=== PATIENT | female | born 1990 | race Caucasian/White ===

== ENCOUNTER 2022-05-15 09:43 | Outpatient (CLI) | payer BC, SELFPAY ==
[2022-05-15 18:11] LABS: Cholesterol* 198 mg/dL (90-199)
[2022-05-15 18:12] LABS: Glucose* 89 mg/dL (60-115); HDL Cholesterol* 65 mg/dL (>=50); LDL Cholesterol Calculated 116 mg/dL (<100); Triglycerides* 85 mg/dL (40-149)
== END 2022-05-15 09:44 | disposition home or self-care (01) ==
PROVIDERS: Visit Provider Obstetrics & Gynecology
DX: Z01.419 Encounter for gynecological examination (general) (routine) without abnormal findings (principal); Z13.29 Encounter for screening for other suspected endocrine disorder; Z13.1 Encounter for screening for diabetes mellitus; Z13.6 Encounter for screening for cardiovascular disorders
CPT/HCPCS: 80061; 82947; 84443

== ENCOUNTER 2023-10-11 19:33 | Emergency (ER) | payer OTHER, SELFPAY ==
[2023-10-11 19:46] VITALS: BP 139/88; PULSE 102; RESP 18; TEMP 36.3; O2SAT 100; BMI 25.1
--- NOTE | 2023-10-11 19:51 | ED_ITS ---
HPI - General Adult General Date Seen: 10/11/23 Chief complaint: Shortness of Breath/Dyspnea Stated complaint: shortness of breath, chest pain, covid + Time Seen by Provider: 10/11/23 19:51 History of Present Illness HPI narrative: 32-year-old female presents to the ER today for shortness of breath and chest pain. She was positive for COVID 9 days ago. Symptoms had been improving and she has been increasing her activity. Today she was at the park with a daughter and started feeling tightness in her chest along with shortness of breath. Apparently has AFib confirmed once 19 years old. She does have a family history of AFib in her father as well as in her grandmother but does not have any known genetic channelopathy or other heart condition. No family history of sudden cardiac . She has had symptoms of upper respiratory infection including stuffy nose, cough, and other symptoms dating back to about the 2nd week of September. She had been sick for about a week or 10 days when she tested for coronavirus on October 02 and was positive. That was 10 days ago. She had had lingering symptoms of cough, nasal congestion, fatigue ongoing since then but has been getting better and better this week. No ongoing fevers. Minimal ongoing cough. She was back to doing her running and cardio exercise for a few days this week. She felt like she was getting better. Today she took her daughter to the park and while they were playing at the park she began to feel a little bit of discomfort and tightness and squeezing in her chest at about 1 or 2:00 a.m. this afternoon. She was little bit short of breath. She decided to take her daughter to the library. There the chest tightness seemed to get better but she still felt a little bit lightheaded and dizzy. She has had to go home and rest and symptoms have persisted through the evening. She is not having any palpitations. No nausea. No back pain. No high fever. No cough. No abdominal pain. No swelling in her legs. No recent travel. She does not have any history of DVT or PE. Related Data Home Medications Medication Instructions Recorded Confirmed Saccharomyces boulardii 250 mg 5,000 mmu cells PO QDAY 05/15/22 07/17/23 capsule (Daily Probiotic (S. boulardii)) cetirizine 10 mg tablet (Zyrtec) 10 mg PO QDAY PRN 05/15/22 07/17/23 Previous Rx's Medication Instructions Recorded norgestimate 0.25 mg-ethinyl 1 tab PO QDAY #84 tabs 07/17/23 estradiol 35 mcg tablet (Sprintec (28)) Allergies Allergy/AdvReac Type Severity Reaction Status Date / Time amoxicillin AdvReac Intermediate Rash/hives Verified 07/17/23 09:22 Clavulanate Allergy Mild Rash on Uncoded 07/17/23 09:22 chest PFSH PFSH Medical History Gestational hypertension (~05/2018) ?O13.9 - Gestational [-induced] hypertension without significant proteinuria, unspecified trimester (ICD-10) Delivery normal (06/11/18) ?O80 - Encounter for full-term uncomplicated delivery (ICD-10) Surgical History History of third molar tooth extraction ?K08.409 - Partial loss of teeth, unspecified cause, unspecified class (ICD- 10) Family History Father High cholesterol High blood pressure Atrial fibrillation Mother High cholesterol High blood pressure Thyroid disease Family/Other Stroke Lung cancer Social History Narrative: - [place] What is your current living situation?: I presently have a place to live Problems where you live: declined to answer In the past 12 months, utilities in danger of being shut off: no In past 12 months, lack of transportation kept you from medical appts, meetings, work, or getting things needed for daily living: no In the past 12 mos, have been you worried that your food would run out before you had money to buy more?: never true In the past 12 mos, the food you bought just didn't last and you didn't have money to buy more?: never true Highest level of school completed/degree received: Bachelor's degree Physical activity type: walking and running How many days of moderate to strenuous exercise, like a brisk walk, did you do in the last 7 days: 4 Smoking Status: Never smoker How often do you have a drink containing alcohol: monthly or less AUDIT-C Alcohol total score: 1 Non-prescribed substance use: denies use How often does anyone, including family, friends and others, physically hurt you : never How often does anyone, including family, friends and others, insult or talk down to you: never How often does anyone, including family, friends and others, threaten you with harm: never How often does anyone, including family, friends and others, scream or curse at you: never Little interest or pleasure in doing things: not at all Feeling down, depressed, or hopeless: not at all Do you think of yourself as: straight/heterosexual Gender Identity: female Are you currently sexually active: Yes Are you using contraception or practicing any form of control: Yes Exam Narrative: Exam Narrative: Constitutional: Appears well-developed and well-nourished. Alert. Conversant. Non toxic. HENT: Head: Atraumatic. Nose: Nose normal. Mouth/Throat: Oral mucosa is clear and moist. no trismus. Pharynx normal. Tonsils symmetric. No tonsillar enlargement, erythema, or exudate. Eyes: Conjunctivae normal. EOM normal. Pupils equal, round, and reactive to light. No scleral icterus. Neck: Normal range of motion. Neck supple. No tracheal deviation present. No JVD Cardiovascular: Normal rate, regular rhythm. No gallop. No friction rub. No murmur heard. Symmetric radial and PT artery pulses Pulmonary/Chest: Effort normal. No stridor. No respiratory distress. No wheezes. No rales. No rhonchi . No tenderness. Abdominal: Soft. Bowel sounds normal. No distension. No mass. No tenderness. No rebound. No guarding. No CVA tenderness. Musculoskeletal: RUE: Normal range of motion. No tenderness. No deformity LUE: Normal range of motion. No tenderness. No deformity RLE: Normal range of motion. No edema. No tenderness. No deformity LLE: Normal range of motion. No edema. No tenderness. No deformity Neurological: Alert and oriented to person, place, and time. Normal strength. CN II-VII intact. No sensory deficit. GCS eye subscore is 4. GCS verbal subscore is 5. GCS motor subscore is 6. Normal coordination Skin: Skin is warm and dry. No rash noted. No pallor. Normal capillary refill. Psychiatric: Normal mood. Normal affect. Very polite. Const: Vital Signs, click to edit/add: Vital Signs - 24 hr 10/11/23 19:46 Temperature 97.3 F L Pulse Rate [Pulse Oximeter] 102 H Respiratory Rate 18 Blood Pressure [Ri ght Upper Arm] 139/88 Pulse Oximetry 100 Oxygen Delivery Me thod Room Air Course Vital Signs Vital signs: Initial Vital Signs Temperature 97.3 F L 10/11/23 19:46 Temperature Source Temporal Artery Scan 10/11/23 19:46 Pulse Rate 102 H 10/11/23 19:46 Respiratory Rate 18 10/11/23 19:46 Blood Pressure 139/88 10/11/23 19:46 Blood Pressure Mean 105 10/11/23 19:46 Blood Pressure Position Supine 10/11/23 19:46 Pulse Oximetry 100 10/11/23 19:46 Oxygen Delivery Method Room Air 10/11/23 19:46 Vital Signs Temperature 97.3 F L 10/11/23 19:46 Pulse Rate 102 H 10/11/23 19:46 Respiratory Rate 18 10/11/23 19:46 Blood Pressure 139/88 10/11/23 19:46 Pulse Oximetry 100 10/11/23 19:46 Oxygen Delivery Method Room Air 10/11/23 19:46 Temperature 97.3 F L 10/11/23 19:46 Pulse Rate 102 H 10/11/23 19:46 Respiratory Rate 18 10/11/23 19:46 Blood Pressure 139/88 10/11/23 19:46 Pulse Oximetry 100 10/11/23 19:46 Oxygen Delivery Method Room Air 10/11/23 19:46 Medications Administered Medications: Discontinued Medications Generic Name Dose Route Start Last Admin Trade Name Freq PRN Reason Stop Dose Admin Aspirin 162 mg 10/11/23 19:54 10/11/23 20:22 Aspirin 81 Mg Tab.Chew PO 10/11/23 19:55 162 mg ONCE ONE Administration Medical Decision Making MDM Narrative Medical decision making narrative: This patient presents to the ER today for evaluation of chest discomfort and tightness that began about 1:00 p.m. this afternoon, 7 hours prior to arrival, while she was at the park with her daughter.. Differential was broad. No evidence of palpitations, syncope or other cardiac dysrhythmia. She has a history of AFib but is in sinus rhythm on her EKG here today. We considered possible ACS, however workup with EKG and troponin is negative. HEART score is low risk. Given time since onset of symptoms, I do not think the patient needs to be admitted for further sets of enzymes. EKG shows no evidence for pericarditis. Consider possible myocarditis given recent COVID. Chest x-ray shows no evidence for myocarditis related failure or CHF. No fever. White count normal. Troponin negative, white count normal. No evidence for CHF on chest x-ray. Chest x-ray shows no evidence for pneumonia, pneumothorax, pulmonary edema, pleural effusion, rib fracture, cardiomegaly. Mediastinum is normal on the x-ray. The patient has no ripping or tearing pain through to the back and has symmetric pulses on exam, no other acute neuro findings so I doubt aortic dissection. Risk of radiation and contrast exposure would outweigh the benefit of CT angiogram. We considered PE for this patient. No evidence for DVT on exam. Overall low risk. D-dimer screening is negative. Risk of radiation from CT PA would outweigh the benefit at this point. No wheezing or bronchospasm to suggest COPD/asthma. No signs of chest wall cellulitis, shingles, injury. With reasonable clinical confidence, I think the patient is safe for outpatient follow up. Discussed return precautions. Questions answered. Patient voices comfort with the plan. Lab Data Labs: Lab Results 10/11/23 Range/Units 20:15 WBC 7.95 (4.50-11.00) K/uL RBC 4.32 (4.00-5.20) m/uL Hgb 13.1 (12.0-16.0) gm/dL Hct 38.9 (33.0-51.0) % MCV 90 (80-100) fL MCH 30 (26-34) pg MCHC 34 (32-36) gm/dL RDW Coeff of Rajat 11.9 (11.5-15.5) % Plt Count 357 (140-440) K/uL Neut % (Auto) 60.1 (42.0-72.0) % Lymph % (Auto) 28.8 (20-44) % [place]ona % (Auto) 6.9 (0.0-11.0) % Eos % (Auto) 3.9 (0.0-7.0) % Baso % (Auto) 0.3 (0.0-3.0) % Neut # (Auto) 4.78 (1.7-7.0) K/uL Lymph # (Auto) 2.29 (0.90-2.90) K/uL [place] # (Auto) 0.50 (0.00-0.90) K/UL Eos # (Auto) 0.31 (0.00-0.50) K/uL Baso # (Auto) 0.02 (0.00-0.30) K/uL Abs Immat Gran (auto) 0.00 (0.00-0.30) K/uL Imm/Tot Granulo (auto) 0.0 % D-Dimer Quant (PE/DVT) 0.29 (0.00-0.50) ug/ml Sodium 139 (135-149) mmol/L Potassium 3.9 (3.6-5.1) mmol/L Chloride 104 (96-114) mmol/L Carbon Dioxide 26 (20-32) mmol/L Anion Gap 9 (7-15) mEq/L BUN 14 (5-24) mg/dL Creatinine 0.7 (0.5-1.5) mg/dL Estimated Creat Clear 125.92 Estimated GFR 119 ml/min Glucose 111 (60-115) mg/dL Calcium 9.3 (8.4-10.6) mg/dL Troponin I < 0.01 L (0.01-0.04) ng/mL Imaging Data Chest x-ray: Attestation: I have reviewed the pertinent imaging results. Radiologist's impression: IMPRESSION: No evidence of an acute pulmonary process. ECG Data Attestation: I personally reviewed and interpreted this ECG as follows: Interpretation: Normal sinus rhythm rate 90. [place] 134. No delta waves. No WPW. QRS axis normal axis. No pathologic Q-waves. Insignificant cues in leads 2 and [address] segment/T wave: No ST segment elevation or depression. QTc: 442. Discharge Plan Discharge Clinical Impression: Chest discomfort Patient Disposition: Home, Self-Care Condition: Stable Instructions: Chest Pain (DC) Additional Instructions: As we discussed, please return to the ER right away if you have worsening chest pain, worsening shortness of breath, high fever, or any concerns. If your pain is not completely improved within 48 hours, please recheck with your doctor. You may need an echocardiogram for further evaluation, if symptoms persist. Prescriptions: No Action cetirizine [Zyrtec] 10 mg tablet 10 mg PO QDAY PRN Saccharomyces boulardii [Daily Probiotic (S. boulardii)] 250 mg capsule 5,000 mmu cells PO QDAY norgestimate-ethinyl estradiol [Sprintec (28)] 0.25-35 mg-mcg tablet 1 tab PO QDAY Qty: 84 3RF Follow Up/Referrals: Provider,Not a Local [Primary Care Provider] - Stand Alone Forms: [facility] Info Instructions
--- NOTE | 2023-10-11 19:55 | CRLHL7_ITS ---
For Patients: As a result of the Cures Act, medical imaging exams and procedure reports are released immediately into your electronic medical record. You may view this report before your referring provider. If you have questions, please contact your health care provider. INDICATION: Chest pain, cough, COVID positive TECHNIQUE: Chest 2 view. Permanently recorded images are archived. COMPARISON: None. FINDINGS: Cardiovascular and mediastinum: Heart size and vasculature are normal in caliber and appearance. Lungs and pleural spaces: The lungs are clear. No pleural effusion or pneumothorax. Bones and soft tissues: Unremarkable for age. IMPRESSION: No evidence of an acute pulmonary process. Dictated by Fran Raymundo MD @ 10/11/2023 8:28:15 PM (Electronically Signed)
[2023-10-11] MEDS: ASPIRIN 81 MG TAB.CHEW 162 MG PO (20:22)
[2023-10-11 20:23] LABS: Basophils Absolute Auto 0.02 K/uL (0.00-0.30); Basophils Percent Auto 0.3 % (0.0-3.0); Eosinophils Absolute Auto 0.31 K/uL (0.00-0.50); Eosinophils Percent Auto 3.9 % (0.0-7.0); Hematocrit 38.9 % (33.0-51.0); Hemoglobin* 13.1 gm/dL (12.0-16.0); Lymphocytes Absolute Auto 2.29 K/uL (0.90-2.90); Lymphocytes Percent Auto 28.8 % (20-44); Mean Corpuscular HGB Conc 34 gm/dL (32-36); Mean Corpuscular Hemoglobin 30 pg (26-34); Mean Corpuscular Volume 90 fL (80-100); Monocytes Percent Auto 6.9 % (0.0-11.0); Neutrophils Absolute Auto 4.78 K/uL (1.7-7.0); Neutrophils Percent Auto 60.1 % (42.0-72.0); Platelet Count* 357 K/uL (140-440); RDW Coefficient of Variation % 11.9 % (11.5-15.5); Red Blood Count 4.32 m/uL (4.00-5.20); White Blood Count* 7.95 K/uL (4.50-11.00)
[2023-10-11 20:24] VITALS: PULSE 85; O2SAT 97
[2023-10-11 20:24] LABS: Slide Review Reflex No
[2023-10-11 20:30] VITALS: PULSE 85; O2SAT 98
[2023-10-11 20:36] LABS: Chloride* 104 mmol/L (96-114); Potassium* 3.9 mmol/L (3.6-5.1); Sodium* 139 mmol/L (135-149)
[2023-10-11 20:38] LABS: Creatinine* 0.7 mg/dL (0.5-1.5); Est. Creatinine Clearance* 125.92; Estimated Glomerular Filt Rate 119 ml/min
[2023-10-11 20:39] LABS: Anion Gap 9 mEq/L (7-15); Blood Urea Nitrogen* 14 mg/dL (5-24); Calcium* 9.3 mg/dL (8.4-10.6); Carbon Dioxide* 26 mmol/L (20-32); Glucose* 111 mg/dL (60-115)
[2023-10-11 20:40] LABS: D Dimer Quantitative* 0.29 ug/ml (0.00-0.50)
[2023-10-11 20:45] VITALS: PULSE 87; O2SAT 99
[2023-10-11 20:51] LABS: Troponin I* < 0.01 ng/mL (0.01-0.04)
[2023-10-11 21:00] VITALS: PULSE 76; O2SAT 99
[2023-10-11 21:15] VITALS: PULSE 85; O2SAT 100
== END 2023-10-11 21:41 | disposition home or self-care (01) ==
PROVIDERS: Emergency Provider Emergency Medicine
DX: R07.9 Chest pain, unspecified (principal)
CPT/HCPCS: 36415; 71046; 80048; 84484; 85025; 85379; 93005; 99283; 99284; 99285; A9270

== ENCOUNTER 2024-08-30 10:02 | Outpatient (CLI) | payer OTHER, SELFPAY ==
[2024-09-02 02:04] LABS: HPV Source Cervix; HPV, High Risk by TMA Not Detected
== END 2024-08-30 10:03 | disposition home or self-care (01) ==
PROVIDERS: Visit Provider Obstetrics & Gynecology
DX: Z12.4 Encounter for screening for malignant neoplasm of cervix (principal); Z13.220 Encounter for screening for lipoid disorders
CPT/HCPCS: 80061; 87624; 87625; 88141; 88142